=== PATIENT | male | born 1960 | race Caucasian/White ===

== ENCOUNTER 2017-10-15 09:46 | Day surgery (SDC) | payer OTHER ==
[2017-10-15 10:44] VITALS: TEMP 97.5
--- NOTE | 2017-10-15 11:00 | CP.SDSHP ---
Same Day Surgery H & P - History Proposed Procedure: colonscopy Pre-Op Diagnosis: SEE NOTES - Previous Medical/Surgical History Cardiac: Hypertension Pulmonary: Asthma Endocrine/Metabolic: Other Misc: Other Pain: 4.Moderate Pain - Allergies Allergies: Allergies shellfish derived Allergy (Verified 10/15/17 10:33) ANAPHYLAXIS - Physical Exam General Appearance: N Vital Signs: Vital Signs 10/15/17 10/15/17 10:01 10:05 Temperature 97.5 F L Pulse Rate 80 80 Respiratory 20 Rate Blood Pressure 145/50 L O2 Sat by Pulse 97 Oximetry Mental Status: Alert & Oriented x3 Neuro: WNL Heart: Other Lungs: Other GI: WNL - {Optional Preform as Required} Breast: WNL Abdomen: Other Rectal: Other Integument: WNL : Other Ortho: WNL ENT: WNL - Impression Pt. Evaluated Today:Candidate for Anesthesia & Procedure: Yes - Date & Time Time: 11:00 Short Stay Discharge - Short Stay Discharge Admitting Diagnosis/Reason for Visit: HEMORRHAGE OF ANUS AND RECTUM Disposition: HOME/ ROUTINE
[2017-10-15] MEDS ORDERED: Propofol 10 mg/ml Inj (20 ML) ONE ×2 (11:08→11:12)
[2017-10-15] MEDS ORDERED: Lactated Ringer's 1,000 ML IV ONE (11:08)
[2017-10-15] MEDS ORDERED: Lidocaine Hydrochloride 5 ML INJ ONE (11:08)
[2017-10-15] MEDS ORDERED: ePHEDrine 50 mg/ml Inj ONE (11:17)
[2017-10-15] MEDS ORDERED: Belladonna-Phenobarbital PO ONE (11:35)
[2017-10-15 13:27] VITALS: BP 118/73; PULSE 79; RESP 12; O2SAT 97
== END 2017-10-15 13:05 | disposition home or self-care (01) ==
LOC: C.ENDO 09:46
PROVIDERS: ATTEND Specialist
DX: K58.9 Irritable bowel syndrome, unspecified (principal); K64.8 Other hemorrhoids; K57.90 Diverticulosis of intestine, part unspecified, without perforation or abscess without bleeding
CPT/HCPCS: 45380; 88305; J2704; J7120